=== PATIENT | female | born 1950 | race Caucasian/White ===

== ENCOUNTER 2017-08-18 11:24 | Day surgery (SDC) | payer MEDICARE, BC ==
[~2017-08-18 11:24] MED LIST: RINGER'S SOLUTION,LACTATED 1,000 ML IV PRN
[2017-08-18] MEDS ORDERED: RINGER'S SOLUTION,LACTATED 1,000 ML IV ONE ×2 (12:32→14:43)
[2017-08-18 16:01] VITALS: BP 140/64
--- NOTE | 2017-08-18 16:45 | OR ---
Operative Report - Dictated Report Narrative: Date: 08/18/2017 Preop dx: Screen for colon cancer Postop dx: Pancolonic diverticulosis Procedure: Total colonoscopy Staff surgeon: Esdras Crowder MD Anesthesia: MAC per FIELD REPRESENTATIVE/HEALTH EDUCATION EBL: none Specimens: none Description: After informed consent and appropriate sedation the patient was placed in the left lateral decubitus position. A flexible fiberoptic video colonoscopty was introduced and advanced under direct vision without difficulty to the cecum. The usual landmarks were identified. Preparation was excellent and excellent views were obtained. The findings were of pancolonic moderate diverticulosis, otherwise normal cecum , ascending colon, hepatic flexure, transverse colon, splenic flexure, descending colon, sigmoid colon, and rectum. The mucosal color, vasculature, and texture were normal throughout. No suspicious masses were seen. The patient tolerated the procedure well without apparent complications and was discharged from the endoscopy suite in stable condition.
== END 2017-08-18 11:25 | disposition home or self-care (01) ==
LOC: AMB 11:24
PROVIDERS: ATTEND Specialist
PROC: 0DJD8ZZ Inspection of Lower Intestinal Tract, Via Natural or Artificial Opening Endoscopic (ICD-10-PCS; principal; 2017-08-18)
DX: Z12.11 Encounter for screening for malignant neoplasm of colon (principal); K57.30 Diverticulosis of large intestine without perforation or abscess without bleeding; I11.0 Hypertensive heart disease with heart failure; I50.9 Heart failure, unspecified; K21.9 Gastro-esophageal reflux disease without esophagitis; M13.80 Other specified arthritis, unspecified site; F32.9 Major depressive disorder, single episode, unspecified; G25.81 Restless legs syndrome; Z87.891 Personal history of nicotine dependence; Z68.35 Body mass index [BMI] 35.0-35.9, adult; Z80.0 Family history of malignant neoplasm of digestive organs